=== PATIENT | female | born 1975 | race Caucasian/White ===

== ENCOUNTER 2022-03-21 12:31 | Emergency (ER) | payer OTHER ==
[~2022-03-21] VITALS: Ht 157.5 cm; Wt 112.5 kg
[2022-03-21 12:37] VITALS: BP_SYST 162
--- NOTE | 2022-03-21 13:52 | NUR ---
Pt brought by self, A&Ox4, pt presents to ER with R knee pain/swelling , denies trauma, skin pink and warm, cap refill <3, VSS.
--- NOTE | 2022-03-21 16:20 | NUR ---
Dr Brush evaluating patient at bedside
[2022-03-21] MEDS ORDERED: IBUP-1971 PO (17:05)
[2022-03-21] MEDS ORDERED: KETOROLAC TROMETHAMINE 60 MG/2 ML VIAL IM ONE (17:15)
== END 2022-03-21 17:21 | disposition home or self-care (01) ==
LOC: SED 12:31 → EDBD 12:31 → SED 17:21
DX: M25.561 Pain in right knee (principal); Z79.899 Other long term (current) drug therapy
CPT/HCPCS: 99283; 73564; 96372; J1885